=== PATIENT | female | born 2000 | race Two or more races ===

== ENCOUNTER 2024-08-20 18:10 | Emergency (ER) | payer OTHER, SELFPAY ==
[2024-08-20 18:36] VITALS: BP 122/73; PULSE 61; RESP 16; TEMP 36.6; O2SAT 100
[2024-08-20 19:35] LABS: BEDSIDEPREGUCG Negative (Negative)
[2024-08-20 19:42] LABS: Add Urine Microscopic? YES; Appearance Urine Clear (Clear); Bacteria Urine None Seen /hpf; Bilirubin Urine Negative (Negative); Blood Urine 2+ (Negative); Color Urine Yellow (Yellow); Glucose Urine UA Negative (Negative); Ketones Urine Negative (Negative); Leukocyte Esterase Ur 3+ LEU/UL (Negative); Nitrate Urine Negative (Negative); Non Pathogenic Casts 0-2; Protein Urine Negative (Negative); Specific Grav Ur 1.009 (1.001-1.035); Squamous Epithelial Cell Urine None Seen /hpf (Few); Urobilinogen Urine 0.2 mg/dL (<2.0); WBC Urine 21-50 /hpf (0-3)
--- NOTE | 2024-08-20 20:31 | ED_ITS ---
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 Ongoing over the last couple of days. Reports recent unprotected sex. Is currently on Macrobid for a UTI. Reports abnormal discharge and swelling. Denies fevers. Related Data Allergies Allergy/AdvReac Type Severity Reaction Status Date / Time No Known Allergies Allergy Verified 08/20/24 21:13 Review of Systems Review of Systems: CONSTITUTIONAL: Denies fever GENITOURINARY: Reports dysuria SKIN: Reports rash and itching. All systems reviewed & are unremarkable except as noted in HPI and below PMFSH Past Medical History Medical History (Updated 08/20/24 @ 22:45 by Aydee Kunz PA-C) No active medical problems Social History Social History (Updated 08/20/24 @ 20:37 by Aydee Kunz PA-C) Substance use: never Exam Narrative: GENERAL: Well-appearing, well-nourished, and in no acute distress. HEAD: Normocephalic, atraumatic. EYES: EOMI. CHEST: No respiratory distress. HEART: Regular rate EXTREMITIES: Normal range of motion. No edema. SKIN: Warm, dry, no rash. NEURO: No focal deficits. Alert and oriented x3. PSYCH: Normal mood and affect PELVIC: Swelling with ulcerative lesions on an erythematous base noted on the vulva. Irritation of the cervix with white/yellow discharge. IUD strings noted Course Course Emergency Course: Patient updated on her workup and agrees with plan of care Vital Signs Vital signs: Vital Signs Temperature 97.8 F 08/20/24 18:36 Pulse Rate 61 08/20/24 18:36 Respiratory Rate 16 08/20/24 18:36 Blood Pressure 122/73 08/20/24 18:36 Pulse Oximetry 100 08/20/24 18:36 Oxygen Delivery Room Air 08/20/24 18:36 Temperature 97.8 F 08/20/24 18:36 Pulse Rate 61 08/20/24 18:36 Respiratory Rate 16 08/20/24 18:36 Blood Pressure 122/73 08/20/24 18:36 Pulse Oximetry 100 08/20/24 18:36 Oxygen Delivery Room Air 08/20/24 18:36 MDM - Female Genitourinary MDM Narrative Medical decision making narrative: Patient presents to the emergency department for vulvovaginal irritation after unprotected sex. Exam is consistent with likely genital herpes. Will be started on antiviral. Swab sent. Chlamydia, gonorrhea and Trichomonas are negative. General genital culture sent. Patient is on Macrobid currently. Instructed her to finish this as prescribed. Given a dose of fluconazole for possible yeast infection. 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 She was given warnings to return to the ER Differential Diagnosis Differential diagnosis: Likely urinary tract infection, bacterial vaginosis, trichomoniasis, cervicitis, vaginitis, cystitis and other (herpes, Chlamydia, gonorrhea) Lab Data Attestation: I reviewed the patient's lab results. Labs: Lab Results 08/20/24 08/20/24 08/20/24 Range/Units 19:30 19:33 20:53 Urine Color Yellow (Yellow) Urine Appearance Clear (Clear) Urine pH 7.0 (5.0-9.0) Ur Specific [place] 1.009 (1.001-1.035) Urine Protein Negative (Negative) mg/dL Urine Glucose (UA) Negative (Negative) mg/dL Urine Ketones Negative (Negative) mg/dL Ur Blood (Man) 2+ H (Negative) Urine Nitrate Negative (Negative) Urine Bilirubin Negative (Negative) Urine Urobilinogen 0.2 (<2.0) mg/dL Leukocyte Esterase Rfl 3+ H (Negative) LEE/UL Urine RBC 3-5 H (0-2) /hpf Urine WBC 21-50 H (0-3) /hpf Ur Squamous Epith Cells None seen (Few) /hpf Urine Bacteria None seen /hpf Urine Casts 0-2 POC Urine HCG, Qual Negative (Negative) C. trachomatis (PCR) (NOT DETECTE) Herpes Virus Source Herpes Simplex Culture N. gonorrhoeae (PCR) (NOT DETECTE) T. vaginalis (PCR) (NOT DETECTE) Bact Vaginosis Panel Pending 08/20/24 08/20/24 Range/Units 20:54 20:55 Urine Color (Yellow) Urine Appearance (Clear) Urine pH (5.0-9.0) Ur Specific [place] (1.001-1.035) Urine Protein (Negative) mg/dL Urine Glucose (UA) (Negative) mg/dL Urine Ketones (Negative) mg/dL Ur Blood (Man) (Negative) Urine Nitrate (Negative) Urine Bilirubin (Negative) Urine Urobilinogen (<2.0) mg/dL Leukocyte Esterase Rfl (Negative) LEE/UL Urine RBC (0-2) /hpf Urine WBC (0-3) /hpf Ur Squamous Epith Cells (Few) /hpf Urine Bacteria /hpf Urine Casts POC Urine HCG, Qual (Negative) C. trachomatis (PCR) Not detected (NOT DETECTE) Herpes Virus Source Pending Herpes Simplex Culture Pending N. gonorrhoeae (PCR) Not detected (NOT DETECTE) T. vaginalis (PCR) Not detected (NOT DETECTE) Bact Vaginosis Panel Critical Care Time Critical Care Time Critical Care Time: No Discharge Plan Discharge Clinical Impression: Concern about STD in female without diagnosis Patient Disposition: Home, Self-Care Condition: Stable Instructions: Antibiotic Form, Genital Herpes Infection (ED), Sexually Transmitted Diseases (ED) Additional Instructions: Return to the ER if you experience fever, abdominal pain with nausea and vomiting, you are unable to keep down liquids or solids, pain or burning with urination, blood in the urine or any other symptoms that are concerning to you Remain well hydrated. Finish your antibiotic as prescribed. Take antiviral (Valacyclovir) as prescribed. 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
[2024-08-20 22:12] LABS: Trichomonas Vag PCR NOT DETECTED (NOT DETECTE)
[2024-08-20 22:38] LABS: Chlamydia trachomatis NOT DETECTED (NOT DETECTE); Neisseria gonorrhoeae PCR NOT DETECTED (NOT DETECTE)
[2024-08-20] MEDS: FLUCONAZOLE 150 MG TABLET PO (22:48)
[2024-08-23 13:49] LABS: Bacterial Vaginosis NEGATIVE (NEGATIVE)
== END 2024-08-20 22:50 | disposition home or self-care (01) ==
PROVIDERS: Student in an Organized Health Care Education/Training Program; Emergency Provider Physician Assistant
DX: N89.8 Other specified noninflammatory disorders of vagina (principal)
CPT/HCPCS: 81001; 81025; 81513; 87070; 87086; 87255; 87491; 87591; 87661; 99284; A9270